=== PATIENT | male | born 1960 | race Caucasian/White ===

== ENCOUNTER → 2024-08-15 10:45 | Outpatient (CLI) | payer BC, SELFPAY ==
[2024-08-15 11:26] LABS: Add Manual Diff / Slide Review NO; Basophils Absolute Auto 0 /uL (0-100); Basophils Percent Auto 0.5 % (0-2); Eosinophils Absolute Auto 300 /uL (0-450); Eosinophils Percent Auto 4.7 % (2-4); Hematocrit 43.9 % (41-53); Hemoglobin 14.8 g/dL (13.5-17.5); Lymphocytes Absolute Auto 1700 /uL (1100-4500); Lymphocytes Percent Auto 27.9 % (25-40); Mean Corpuscular HGB Conc 33.8 % (30-36); Mean Corpuscular Volume 91.8 fL (80-100); Monocytes Absolute Auto 600 /uL (0-900); Monocytes Percent Auto 9.1 % (3-14); Neutrophils Absolute Auto 3600 /uL (1500-7000); Neutrophils Percent Auto 57.8 % (50-75); Platelet Count 273 X10^3/uL (150-400); Red Blood Cell Count 4.78 X10^6/uL (4.5-5.9); Red Cell Distribution Width 12.7 % (11.6-14.8); White Blood Cell Count 6.1 X10^3/uL (4.5-11.0)
[2024-08-15 20:44] LABS: Alanine Aminotransferase 30 IU/L (<50); Albumin 4.7 g/dL (3.5-5.0); Albumin Globulin Ratio 1.8 (1.0-2.8); Alkaline Phosphatase 60 U/L (38-126); Aspartate Aminotransferase 43 IU/L (17-59); BUN Creatinine Ratio 16.9 (6-22); Bilirubin Total 1.1 mg/dL (0.2-1.3); Blood Urea Nitrogen 15 mg/dL (9-20); Calcium 9.7 mg/dL (8.4-10.2); Carbon Dioxide 26 mmol/L (22-32); Chloride 101 mmol/L (98-107); Cholesterol 226 mg/dL (140-199); Estimated Glomerular Filt Rate > 60 mL/min (>60); Globulin 2.6 g/dL (1.7-4.1); Glucose 114 mg/dL (80-110); HDL Cholesterol 96 mg/dL (40-60); HEMOLYSIS < 15 (0-50); LDL Cholesterol Calculated 110 mg/dL (<100); Potassium 4.2 mmol/L (3.4-5.1); Sodium 136 mmol/L (137-145); Total Protein 7.3 g/dL (6.3-8.2); Triglycerides 102 mg/dL (35-150)
== END ==
PROVIDERS: PCP Family Medicine; Referring Provider Family Medicine; Visit Provider Family Medicine
DX: R79.89 Other specified abnormal findings of blood chemistry (principal); E78.5 Hyperlipidemia, unspecified
CPT/HCPCS: 36415; 80053; 80061; 85025

== ENCOUNTER → 2024-08-30 10:59 | Outpatient (CLI) | payer BC, SELFPAY ==
--- NOTE | 2024-08-30 | DI.US.S_ITS ---
PROCEDURE: US ABD AORTA ANEURYSM SCREEN INDICATIONS: HX SMOKING TECHNIQUE: Real time scanning was performed of the aorta and iliac arteries, with image documentation. COMPARISON: None. FINDINGS: Aorta: Proximal aortic diameter measures 2.2 cm. Mid-aorta measures 2.2 cm. Distal aortic diameter is 1.7 cm. Iliac arteries: Right common iliac artery measures 1.3 cm. Left common iliac artery measures 1.3 cm. IMPRESSION: Negative for aneurysm. Dictated by: Titus Nixon M.D. on 08/30/2024 at 12:02 Approved by: Titus Nixon M.D. on 08/30/2024 at 12:03
--- NOTE | 2024-08-30 11:00 | DI.CT.S_ITS ---
PROCEDURE: CT LUNG LOW DOSE SCREENING INDICATIONS: History of nicotine dependence TECHNIQUE: Noncontrast 2.0-2.5 mm thick sections acquired from the pulmonary apices to the posterior costophrenic angles. 7 mm thick axial MIP, and 5 mm coronal and sagittal reformats were then acquired. For radiation dose reduction, the following was used: automated exposure control, adjustment of mA and/or kV according to patient size. COMPARISON: None. FINDINGS: Image quality: Diagnostic. Lower Neck: No enlarged lymph nodes. Thyroid: No thyroid nodules which require sonographic follow up, per consensus guidelines. Axillae: No enlarged lymph nodes. Chest Wall: Unremarkable. Bones: There is a moderate kyphosis. Lungs and Pleura: All 3 millimeter nodule in the left lung base (210/3). There is a 7 millimeter solid nodule in the right upper lobe (109/3). Heart: Heart size is normal. No pericardial effusion. Coronary artery mild calcifications are present. Thoracic Vessels: The ascending thoracic aorta is ectatic and measures 4.2 centimeters. Mediastinum and Paulette: No enlarged lymph nodes. Esophagus: No wall thickening. No hiatal hernia. Upper Abdomen: Visualized upper abdomen solid organs and bowel loops appear normal. IMPRESSION: Right upper lung 7 millimeter pulmonary nodule. LUNG-RADS 3: Probably benign, recommend six-month follow-up CT Clinically Significant Non-pulmonary Findings: Ectatic ascending thoracic aorta measuring 4.2 centimeters. Dictated by: Hayden Joyner M.D. on 08/30/2024 at 13:19 Approved by: Hayden Joyner M.D. on 08/30/2024 at 13:35
== END ==
LOC: CT 11:00
PROVIDERS: PCP Family Medicine; Referring Provider Family Medicine; Visit Provider Family Medicine
DX: Z12.2 Encounter for screening for malignant neoplasm of respiratory organs (principal); Z87.891 Personal history of nicotine dependence; Z13.6 Encounter for screening for cardiovascular disorders; I25.10 Atherosclerotic heart disease of native coronary artery without angina pectoris; R91.1 Solitary pulmonary nodule; I77.810 Thoracic aortic ectasia
CPT/HCPCS: 71271; 76706

== ENCOUNTER → 2024-10-23 12:35 | Outpatient (CLI) | payer BC, SELFPAY ==
--- NOTE | 2024-10-23 12:38 | DI.ECHO.S_ITS ---
[facility] : : [address] : : [place] : : [id number] : : Phone: [phone] Echocardiogram Report + + :Name: EDWARD TRAN Study Date: 10/23/2024 Height: 73 in : :[facility] ReadingLocation: Weight: 200 lb : : Gender: Male BSA: 2.2 m2 : :: 1960 Age: 64 yrs BP: 128/81 mmHg: :Reason For Study: DILATED AORTA : :Ordering Physician: KYLEIGH, : :SYLWIA Chowdary Performed By: Brianda Cochran : :Referring: MAXIMILIAN ARIZMENDI R : + + Interpretation Summary Normal left ventricle size with ejection fraction 60-65%. No significant valvular abnormality. The ascending aorta is mildly enlarged. Procedure: A two-dimensional transthoracic echocardiogram with color flow and Doppler was performed. The study quality was technically adequate. There is no prior echocardiogram noted for this patient. The patient was in sinus bradycardia with heart rates between 54-61 bpm during the exam. Left Ventricle: The left ventricle is normal in size and wall thickness. The ejection fraction is estimated to be 60-65%. There are no focal wall motion abnormalities. Diastolic parameters suggest probable normal left ventricular diastolic function and normal filling pressures. Right Ventricle: The right ventricle is at the upper limits of normal in size. The right ventricular systolic function is normal. Atria: The left atrial size is normal. Right atrial size is normal. There is no Doppler evidence for an interatrial shunt. Mitral Valve: The mitral valve leaflets appear to open well. There is trace mitral regurgitation. Aortic Valve: The aortic valve is trileaflet. The aortic valve opens well. The aortic valve is slightly calcified. There is no aortic valve stenosis. No aortic regurgitation is present. Tricuspid Valve: The tricuspid valve leaflets are thin and pliable. There is trace tricuspid regurgitation. Pulmonary artery pressures cannot be estimated because of the lack of a measurable TR jet velocity. Pulmonic Valve: The pulmonic valve leaflets are thin and pliable; valve motion is normal. There is mild thickening of the pulmonic valve. There is trace pulmonic regurgitation. Great Vessels: The aortic root is normal size. The ascending aorta is mildly enlarged. The IVC is of normal diameter and collapses greater than 50% with a sniff. This suggests a low right atrial pressure of 3 mm Hg. Pericardium/ Pleura There is no pericardial effusion. There is no pleural effusion. MMode/2D Measurements & Calculations LVIDd: 4.3 cm LVOT diam: 2.1 cm LVIDs: 2.7 cm Ao root diam: 3.6 cm FS: 38.3 % asc Aorta Diam: 3.9 cm EPSS: 0.97 cm Ao Arch Diam (Prox Trans): 3.2 cm IVSd: 0.85 cm LVPWd: 0.95 cm LV austin. diameter/BSA (cm/m^2): 2.0 LV sys. diameter/BSA (cm/m^2): 1.2 LA A2 area: 21.7 cm2 RA long axis: 6.4 cm LA A4 area: 20.6 cm2 RA area: 21.4 cm2 LA length (vol): 6.1 cm RA vol: 61.0 ml LA vol: 62.7 ml RA : 28.4 ml/m2 LA vol index: 29.1 ml/m2 IVC diam: 1.8 cm RVD1 (basal): 4.2 cm RVD2 (mid): 3.5 cm TAPSE: 2.3 cm Doppler Measurements & Calculations Ao V2 max: 147.6 cm/sec LVOT Max Naeem: 103.6 cm/sec Ao V2 mean: 97.0 cm/sec LV V1 max P.3 mmHg Ao max P.7 mmHg LV V1 VTI: 23.6 cm Ao mean P.3 mmHg BO(I,D): 2.6 cm2 Ao V2 VTI: 32.4 cm BO(V,D): 2.5 cm2 sev ratio: 0.73 BO indexed to BSA (cm^2/m^2): 1.2 MV E max naeem: 69.0 cm/sec PA V2 max: 93.6 cm/sec MV A max naeem: 68.6 cm/sec PA V2 mean: 65.6 cm/sec MV E/A: 1.0 PA mean P.9 mmHg Med Peak E' Naeem: 6.7 cm/sec PA pr(Accel): 21.2 mmHg E/E' med: 10.2 Lat Peak E' Naeem: 13.0 cm/sec E/E' lat: 5.3 E/e' average: 7.8 MV dec time: 0.24 sec SV(LVOT): 85.5 ml Electronically signed by: Primo Luna on Reading Physician:10/23/2024 03:20 PM
== END ==
PROVIDERS: PCP Family Medicine; Referring Provider Family Medicine; Visit Provider Family Medicine
DX: I77.819 Aortic ectasia, unspecified site (principal); E78.5 Hyperlipidemia, unspecified; I77.89 Other specified disorders of arteries and arterioles
CPT/HCPCS: 93306

== ENCOUNTER 2024-10-24 09:03 | Day surgery (SDC) | payer BC, SELFPAY ==
[2024-10-24] MEDS: LACTATED RINGERS 1,000 ML 100 ML IV (09:23)
[2024-10-24 09:28] VITALS: BP 132/88; PULSE 65; RESP 14; TEMP 36.2; O2SAT 99
--- NOTE | 2024-10-24 09:37 | P.HP_ITS ---
History of Present Illness History of Present Illness Date Patient Seen: 10/24/24 Time Patient Seen: 09:37 Chief complaint: Screening Colonoscopy Narrative: 64-year-old white male, last colonoscopy 7 years ago in [place] with polyps, presents for colon screening. No changes in health. PFSH Medical History HLD (hyperlipidemia) Elevated LFTs Social History Smoking Status: Former smoker alcohol intake: current Meds Home Medications and Allergies Home Medications Medication Instructions Recorded Confirmed Type diazepam 5 mg tablet (Valium) 5 mg PO BEDTIME PRN anxiety #6 tabs 08/15/24 08/15/24 Rx atorvastatin 20 mg tablet (Lipitor) 40 mg (2 x 20 mg) PO DAILY #90 tabs 08/22/24 Rx sodium,potassium,mag sulfates 17.5 See Rx Instructions PO .COMPLEX 09/18/24 Rx gram-3.13 gram-1.6 gram oral soln #354 mL (Suprep Bowel Prep Kit) Allergies Allergy/AdvReac Type Severity Reaction Status Date / Time No Known Drug Allergies Allergy Verified 08/15/24 11:53 Review of Systems Review of Systems ROS: Yes All systems reviewed with the patient and are negative except as otherwise documented Exam Vital Signs (past 8 hours): - 10/24/24 09:28 Temperature 97.2 F L Pulse Rate 65 Respiratory Rate 14 Blood Pressure 132/88 Pulse Oximetry 99 Oxygen Delivery Method Room Air Oxygen Delivery Method Room Air Narrative Exam Narrative: Gen: NAD, sitting comfortably in bed, appears well HEENT: Sclera are anicteric, head is normocephalic and atraumatic, trachea is midline. CV: RRR, no JVD Resp: clear to auscultation bilaterally, equal chest wall movement bilaterally Abd: soft, nontender, normoactive bowel sounds Ext: no edema, full range of motion Neuro: Cranial nerves II-XII grossly intact, no focal deficits Skin: No erythema or ecchymosis Assessment & Plan Assessment and plan (1) Colon cancer screening: Status: Acute Assessment & Plan narrative: Patient presents for colonoscopy Risks, benefits, alternatives to colonoscopy explained, including but not limited to bowel perforation or other serious complication requiring surgery at less than 1 in 5000 colonoscopies, abdominal pain, cramping or bleeding and less than 1% of colonoscopies, and the chances that we find a diagnosis that would require further intervention of about 2%. Patient agrees to proceed. Time-Based Coding :: [TOTAL MINUTES] spent with patient and on the chart (including review of chart, obtaining history, exam, reviewing outside data, placing orders, documenting exam and treatment plan, and counseling patient) on [DATE]. 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
--- NOTE | 2024-10-24 09:57 | PM.OP.COLON ---
Operative Date/Time/Diagnoses Date of procedure: 10/24/24 Time of procedure: 09:57 Pre-op diagnosis: Colon screening, Personal history of polyps Post-op diagnosis: other (Diverticulosis, internal hemorrhoids) Procedure & Clinicians Study performed: Colonoscopy Same procedure as scheduled: Yes Indications: Personal history of polyps Surgeon: Evaristo Olmos Procedure Notes SCOAP/Timeout: Performed Procedure in detail: Time-out was performed. Mac was induced. Patient was placed in left lateral decubitus position. The perineum was inspected without any gross abnormality. Lubricated pediatric colonoscope was inserted and advanced to the cecum. The terminal ileum was intubated. The colonoscope was withdrawn slowly inspecting the circumference of the colon. Pancolonic diverticulosis was noted. Very small polyps may have been missed, prep quality was adequate. Retroflexed view of the rectum showed small, non prolapsed nonbleeding internal hemorrhoids. The scope was withdrawn the patient was taken to PACU in good condition. Scope withdrawal time: 7 Findings: divertiulosis and internal hemorrhoids Specimen(s): none sent Complications: none Impression: Diverticulosis Post-procedure Recommendations: Colonoscopy in 10 years Follow up: as needed Disposition: PACU
[2024-10-24 09:59] VITALS: BP 96/69; PULSE 56; RESP 10; O2SAT 97
[2024-10-24 10:04] VITALS: BP 104/70; PULSE 54; RESP 17; O2SAT 98
[2024-10-24 10:09] VITALS: BP 111/78; PULSE 70; RESP 22; TEMP 36.2; O2SAT 98
== END 2024-10-24 10:25 | disposition home or self-care (01) ==
PROVIDERS: PCP Family Medicine; Referring Provider Surgery; Visit Provider Surgery
PROC: 0DJD8ZZ Inspection of Lower Intestinal Tract, Via Natural or Artificial Opening Endoscopic (ICD-10-PCS; CPT 45378; principal; 2024-10-24 10:00)
DX: Z12.11 Encounter for screening for malignant neoplasm of colon (principal); Z86.0100 Personal history of colon polyps, unspecified; Z87.891 Personal history of nicotine dependence; K57.30 Diverticulosis of large intestine without perforation or abscess without bleeding; K64.8 Other hemorrhoids
CPT/HCPCS: 45378; J2704

== ENCOUNTER → 2025-05-08 10:30 | Outpatient (CLI) | payer BC, SELFPAY ==
--- NOTE | 2025-05-08 10:31 | DI.CT.S_ITS ---
PROCEDURE: CT CHEST WO CON INDICATIONS: 6 month recheck for nodule from 09/12 TECHNIQUE: Noncontrast 5 mm thick sections acquired from the pulmonary apices to the posterior costophrenic angles. 1 mm lung window, 5 mm thick coronal and sagittal and 7 mm axial MIP reformats were then acquired. For radiation dose reduction, the following was used: automated exposure control, adjustment of mA and/or kV according to patient size. COMPARISON: [facility], CT, CT LUNG LOW DOSE SCREENING, 08/30/2024, 11:04. FINDINGS: Image quality: Diagnostic. Lower Neck: No enlarged lymph nodes. Thyroid: No thyroid nodules which require sonographic follow up, per consensus guidelines. Axillae: No enlarged lymph nodes. Chest Wall: Unremarkable. Bones: No aggressive osseous lesions. 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 Degenerative changes of the visualized spine with exaggerated thoracic kyphosis. Lungs and Pleura: No pneumothorax or pleural effusions. Unchanged 7 x 5 mm sub solid nodule in the right upper lobe (3/101). Unchanged 4 mm solid pulmonary nodule in the left lower lobe (3/205). No new suspicious pulmonary nodules. Heart: Heart size is normal. No pericardial effusion. Moderate coronary calcifications. Thoracic Vessels: The ascending thoracic aorta measures up to 4.1 cm in diameter, unchanged. Mediastinum and Paulette: No enlarged lymph nodes. Esophagus: No wall thickening. No hiatal hernia. Upper Abdomen: Visualized upper abdomen solid organs and bowel loops appear normal. IMPRESSION: Stable pulmonary nodules including 7 mm right upper lobe pulmonary nodule. No new/suspicious pulmonary nodules. Recommend resuming annual lung cancer screening if eligible. Dictated by: Lupe Duenas M.D. on 05/08/2025 at 13:44 Approved by: Lupe Duenas M.D. on 05/08/2025 at 13:52
== END ==
LOC: CT 10:31
PROVIDERS: PCP Family Medicine; Referring Provider Family Medicine; Visit Provider Family Medicine
DX: R91.1 Solitary pulmonary nodule (principal); R93.89 Abnormal findings on diagnostic imaging of other specified body structures
CPT/HCPCS: 71250